=== PATIENT | female | born 2000 | race Caucasian/White ===

== ENCOUNTER 2019-04-25 18:40 | Emergency (ER) | payer OTHER ==
[2019-04-25 19:04] VITALS: BP 138/94
--- NOTE | 2019-04-25 19:06 | UC ---
Respiratory Complaint HPI - HPI Summary HPI Summary: 3 days of feverish feeling sleeping 12-13 hours daily sore throat, body aches - History of Current Complaint Chief Complaint: UCGeneralIllness Stated Complaint: COLD, FLU SYMPTOMS Time Seen by Provider: 04/25/19 19:01 Hx Obtained From: Patient Hx Last Menstrual Period: 04/16/2019 ?: No Onset/Duration: Sudden Onset, Lasting Days - 3, Still Present Timing: Constant Pain Intensity: 5 Pain Scale Used: 0-10 Numeric Aggravating Factors: Nothing Alleviating Factors: Nothing Associated Signs And Symptoms: Positive: Chills, URI - Allergies/Home Medications Allergies/Adverse Reactions: Allergies Allergy/AdvReac Type Severity Reaction Status Date / Time No Known Allergies Allergy Verified 04/25/19 19:04 Home Medications: Home Medications [id number] [Mucinex] 04/25/19 [History] PMH/Surg Hx/FS Hx/Imm Hx Previously Healthy: Yes - Surgical History Surgical History: None - Family History Known Family History: Positive: None - Social History Occupation: Student Lives: Dormitory/Roommates Alcohol Use: Weekly Substance Use Type: None Smoking Status (MU): Never Smoked Tobacco Review of Systems All Other Systems Reviewed And Are Negative: Yes Constitutional: Positive: Chills, Fatigue Skin: Positive: Negative Eyes: Positive: Negative ENT: Positive: Sore Throat, Nasal Discharge Respiratory: Positive: Cough Cardiovascular: Positive: Negative Gastrointestinal: Positive: Negative Genitourinary: Positive: Negative Motor: Positive: Negative Neurovascular: Positive: Negative Musculoskeletal: Positive: Negative Neurological: Positive: Headache Psychological: Positive: Negative Is Patient Immunocompromised?: No Physical Exam Triage Information Reviewed: Yes Appearance: No Pain Distress, Well-Nourished, Ill-Appearing - mild Vital Signs: Initial Vital Signs Temp 98.8 F 04/25/19 18:57 Pulse 120 04/25/19 18:57 Resp 16 04/25/19 18:57 BP 138/94 04/25/19 18:57 Pulse Ox 99 04/25/19 18:57 Vital Signs Reviewed: Yes Eye Exam: Normal Eyes: Positive: Conjunctiva Clear ENT Exam: Normal ENT: Positive: Normal ENT inspection, Hearing grossly normal, Pharyngeal erythema, Nasal congestion, TMs normal, Uvula midline. Negative: Nasal drainage , Trismus, Muffled voice, Hoarse voice, Dental tenderness, Sinus tenderness Dental Exam: Normal Neck exam: Normal Neck: Positive: Supple, Nontender, No Lymphadenopathy Respiratory Exam: Normal Respiratory: Positive: Chest non-tender, Lungs clear, Normal breath sounds, No respiratory distress, No accessory muscle use Cardiovascular Exam: Normal Cardiovascular: Positive: RRR, No Murmur, Pulses Normal, Brisk Capillary Refill Musculoskeletal Exam: Normal Musculoskeletal: Positive: Strength Intact, ROM Intact, No Edema Neurological Exam: Normal Neurological: Positive: Alert, Muscle Tone Normal Psychological Exam: Normal Skin Exam: Normal Diagnostics - Laboratory Lab Results: rst (-) influenza a/b (-) Respiratory Course/Dx - Course Course Of Treatment: increase fluids, Tylenol, ibuprofen follow with [facility] - Differential Dx/Diagnosis Provider Diagnosis: URI (upper respiratory infection) Discharge ED - Sign-Out/Discharge Documenting (check all that apply): Patient Departure All imaging exams completed and their final reports reviewed: No Studies - Discharge Plan Condition: Stable Disposition: HOME Patient Education Materials: Viral Syndrome (ED) Forms: *School Release Referrals: [facility] @ [Outside] - 3 Days - Billing Disposition and Condition Condition: STABLE Disposition: Home - Attestation Statements Provider Attestation: I was available for consult. This patient was seen by the SHELLI. The patient was not presented to , seen by or examined by ri -Dona Shrestha MD
[2019-04-25 19:26] LABS: Influenza A Molecular NEGATIVE (Negative); Influenza B Molecular NEGATIVE (Negative)
== END 2019-04-25 19:41 | disposition home or self-care (01) ==
LOC: UCEAST 18:40
DX: J06.9 Acute upper respiratory infection, unspecified (principal)
CPT/HCPCS: 87651; 99201; G0463

== ENCOUNTER 2019-04-27 11:39 | Emergency (ER) | payer OTHER ==
[2019-04-27] MEDS ORDERED: Lidocaine 2% VISCOUS* 15 ML UDC SWISH SPIT ONE (12:47)
[2019-04-27] MEDS ORDERED: Acetaminophen TAB* 325 MG PO ONE (12:47)
--- NOTE | 2019-04-27 12:55 | ED ---
HPI Febrile Illness - HPI Summary HPI Summary: 19-year-old female presents to emergency department with a chief complaint of a "severe flulike illness". Patient says her symptoms began on with a sore throat runny nose and feeling very "run down". She was seen at the urgent care on Friday 3 days later where they diagnosed her with a viral illness but said she had a negative rapid strep and flu swab. Patient is not up-to-date with her influenza vaccination. Patient denies cough. Patient states she began having a fever which she measured at 102F last night and has been taking Mucinex with acetaminophen for symptom relief which has been able to control her fever. She states she has "very big lymph nodes in her neck". Patient denies chest pain, abdominal pain, shortness of breath, cough, nausea, vomiting, muscle pain, joint pain, rash. Patient denies trouble speaking but says her voice is harsh. - History of Current Complaint Chief Complaint: EDFluSymptoms Time Seen by Provider: 04/27/19 12:28 Hx Obtained From: Patient, Family/Second Facing Baster - Mother is at the bedside Hx Last Menstrual Period: 04/16/2019 Onset/Duration: Started Days Ago - Started last on 04/22/2019 Temperature: 98.5 F Initial Severity: Moderate Current Severity: Moderate Pain Intensity: 4 Pain Scale Used: 0-10 Numeric Alleviating Factors: OTC Medicine - As With acetaminophen Associated Signs and Symptoms: Sore Throat - Allergy/Home Medications Allergies/Adverse Reactions: Allergies Allergy/AdvReac Type Severity Reaction Status Date / Time No Known Allergies Allergy Verified 04/27/19 12:02 PMH/Surg Hx/FS Hx/Imm Hx Endocrine/Hematology History: Reports: Hx Thyroid Disease - monitored Infectious Disease History: No Infectious Disease History: Denies: Traveled Outside the [place] in Last 30 Days - Family History Known Family History: Positive: None - Social History Alcohol Use: Weekly Substance Use Type: Reports: None Smoking Status (MU): Never Smoked Tobacco Review of Systems Constitutional: Negative Cardiovascular: Negative Respiratory: Negative Gastrointestinal: Negative All Other Systems Reviewed And Are Negative: Yes Physical Exam Triage Information Reviewed: Yes Vital Signs On Initial Exam: Initial Vitals Temp Pulse Resp BP Pulse Ox 98.5 F 100 16 129/95 96 04/27/19 11:44 04/27/19 11:44 04/27/19 11:44 04/27/19 11:44 04/27/19 11:44 Vital Signs Reviewed: Yes Appearance: Positive: Well-Appearing, No Pain Distress, Well-Nourished Skin: Positive: Warm, Skin Color Reflects Adequate Perfusion Head/Face: Positive: Normal Head/Face Inspection Eyes: Positive: Normal, EOMI ENT: Positive: Hearing grossly normal, Pharyngeal erythema, Nasal congestion, TMs normal, Hoarse voice, Uvula midline. Negative: Tonsillar exudate, Sinus tenderness Neck: Positive: Enlarged Nodes @ - Posterior cervical chain presented with lymphadenitis. Negative: Nuchal Rigidity Respiratory/Lung Sounds: Positive: Clear to Auscultation, Breath Sounds Present Cardiovascular: Positive: Normal, RRR, S1, S2 Abdomen Description: Positive: Nontender Bowel Sounds: Positive: Present Neurological: Positive: Normal Gait Psychiatric: Positive: Normal AVPU Assessment: Alert Procedures - Sedation Patient Received Moderate/Deep Sedation with Procedure: No Diagnostics - Vital Signs Vital Signs Temp Pulse Resp BP Pulse Ox 04/27/19 11:44 98.5 F 100 16 129/95 96 - Laboratory Result Diagrams: 04/27/19 12:56 Lab Statement: Any lab studies that have been ordered have been reviewed, and results considered in the medical decision making process. Course/Dx - Course Course Of Treatment: Patient was evaluated in the emergency department for flulike symptoms. She was seen and evaluated. A Monospot, CBC and strep test was ordered. CBC resulted showing mild leukocytosis and the strep test is negative. Her Monospot was positive which would correlate. Her symptoms. The patient was informed that this is a self-limiting virus but can last for very long time (weeks to months) she was told to take Tylenol for fevers and to rest as much as she can. She is told she has no limitations and she may return to activity as tolerated. The patient agrees with this plan. She was stable at the time of discharge. - Febrile Illness Differential Diagnoses: Fever of Unknown Origin, Meningitis, Other: - Pharyngitis - Diagnoses Provider Diagnoses: Mononucleosis Discharge ED - Sign-Out/Discharge Documenting (check all that apply): Patient Departure - Discharge Plan Condition: Stable Disposition: HOME Patient Education Materials: Mononucleosis (ED) Forms: *School Release Referrals: [facility] [Primary Care Provider] - 3 Days Additional Instructions: You were diagnosed in the emergency department today with mononucleosis. This is a viral illness which will go away on its own and is self-limiting. This illness will last weeks to months. For alleviation of symptoms you may take Tylenol [id number] for fevers and any discomfort. you will feel increased fatigue for the duration of this illness. Please try to rest as much as possible. You may return to normal activity as you feel fit. Please return to the emergency department immediately should you develop any new or worsening symptoms. - Billing Disposition and Condition Condition: STABLE Disposition: Home - Attestation Statements Provider Attestation: I was available for consult. This patient was seen by the SHELLI. The patient was not presented to, seen by, or examined by me. -Izabel
[2019-04-27 13:02] LABS: ABS Eosinophils 0.1 10^3/ul (0-0.6); ABS Lymphocytes 1.5 10^3/ul (1.0-4.8); ABS Monocytes 0.7 10^3/ul (0-0.8); ABS Neutrophils 3.9 10^3/ul (1.5-7.7); Eosinophil % 0.9 %; Hematocrit 38 % (35-47); Hemoglobin 13.2 g/dL (12.0-16.0); Lymphocyte % 23.6 %; Mean Corpuscular HGB Conc 35 g/dL (31-36); Mean Corpuscular Hemoglobin 29 pg (27-31); Mean Corpuscular Volume 82 fL (80-97); Mean Platelet Volume 7.1 fL (7.4-10.4); Nucleated Red Blood Cells % 0.1; Platelet Count 246 10^3/uL (150-450); Red Blood Count 4.62 10^6 /uL (3.70-4.87); Red Cell Distribution Width 14 % (10-15); White Blood Count 6.2 10^3/uL (3.5-10.8)
[2019-04-27 13:06] LABS: Rapid Strep Molecular Negative (Negative)
[2019-04-27 14:12] VITALS: BP 112/64
== END 2019-04-27 14:11 | disposition home or self-care (01) ==
LOC: ED 11:39
DX: B27.90 Infectious mononucleosis, unspecified without complication (principal)
CPT/HCPCS: 36415; 85025; 86308; 87651; 99283; A9270-GY